=== PATIENT | male | born 1940 | race Caucasian/White ===

== ENCOUNTER 2018-10-27 13:32 | Inpatient (IN) | payer MEDICARE, OTHER ==
[~2018-10-27] VITALS: Ht 167.6 cm; Wt 64.2 kg
[~2018-10-27 13:32] MED LIST: APIX5TAB PO; ASPI-799 PO; ATEN-122 PO; ATOR20TA38 PO; ATOR40TA68 PO; B CM1TAB PO; CARV3.12 PO; DEXT15LI10 PO; DEXT50DI2 INJ; DONE10TA7 PO; FENO135C3 PO; FOLI-49 PO; GLIM4TAB55 PO; GLIP10TA14 PO; GLUC1VIA7 IM; GUAI120S25 PO; HYDR-3601 PO; INSU100I16 SQ; INSU100I33 SC; INSU100V23 SC; LEVE-5 PO; LEVO500P IVPB; LINA5TAB PO; LINA72CA PO; MEMA10TA PO; MEMA1CAP3 PO; MORP4CAR IV; MUPI22OI2 SUBDERMAL; NEED-135 MC; NEOM28OI2 TOP; NIT4 SL; NUT.237L52 PO; SITA100T11 PO; VALS320T2 PO; [UNRECOGNIZED DRUG - CODE] IV; [UNRECOGNIZED DRUG - CODE] MC; [UNRECOGNIZED DRUG - CODE] MC
[2018-10-27] MEDS ORDERED: SOD CHLORIDE 0.9% 1,000 ML IV STA (13:55)
[2018-10-27] MEDS ORDERED: ONDANSETRON 4 MG INJ IV ONE (14:00)
[2018-10-27] MEDS ORDERED: FENTAnyl 50 MCG/ML VIAL IV ONE (14:00)
[2018-10-27] MEDS ORDERED: SOD CHLORIDE 0.9% 500 ML IV STA (19:22)
[2018-10-27] MEDS ORDERED: ONDANSETRON 4 MG INJ IV STA (19:22)
[2018-10-27] MEDS ORDERED: morphine 2 MG INJ IV STA (19:22)
[2018-10-27] MEDS ORDERED: ONDANSETRON 4 MG INJ IV PRN (19:30)
[2018-10-27] MEDS ORDERED: ACETAMINOPHEN 325 MG TAB PO PRN (19:30)
[2018-10-27 22:00] VITALS: BP 131/63; PULSE 100; RESP 20; Ht 167.6 cm; Wt 64.2 kg
[2018-10-28] VITALS: BP 141/61; PULSE 74; RESP 19
[2018-10-28] MEDS: LEVETIRACETAM 500 MG TAB PO SCH ×3 (01:24→20:49)
[2018-10-28] MEDS ORDERED: ALBUTEROL/IPRATROPIUM (NEB) 3 ML AMP HHN PRN (01:30)
[2018-10-28] MEDS ORDERED: NACL 0.9% 3 ML SYG IV SCH (01:30)
[2018-10-28] MEDS ORDERED: ONDANSETRON 4 MG INJ IV PRN (01:30)
[2018-10-28] MEDS ORDERED: HYDROCODONE/APAP (5/325) TAB PO PRN (01:30)
[2018-10-28 04:00] VITALS: BP 140/65; PULSE 84; RESP 19
[2018-10-28 07:19] VITALS: BP 128/60; PULSE 91; RESP 18
[2018-10-28] MEDS: FOLIC ACID 1 MG TAB PO SCH (08:48)
[2018-10-28] MEDS: MUPIROCIN 2% 22 GM OINT TOP SCH ×2 (08:49→20:50)
[2018-10-28] MEDS ORDERED: HEPARIN 5,000 UNIT/1 ML VIAL SC SCH (09:00)
[2018-10-28 11:34] VITALS: BP 124/58; PULSE 93; RESP 18
[2018-10-28] MEDS: ACETAMINOPHEN 325 MG TAB PO PRN (12:23)
[2018-10-28] MEDS ORDERED: GLUCAGON 1 MG INJ IM PRN (12:30)
[2018-10-28] MEDS ORDERED: hydrALAzine 20 MG INJ IV PRN (12:30)
[2018-10-28] MEDS ORDERED: DEXTROSE 50% 50 ML SYRINGE IV PRN ×2 (12:30)
[2018-10-28] MEDS ORDERED: GLUCOSE GEL 15 GRAM TUBE PO PRN ×2 (12:30)
[2018-10-28] MEDS ORDERED: GLUCOSE GEL 15 GRAM TUBE BUCCAL PRN (12:30)
[2018-10-28] MEDS: CEPHALEXIN 500 MG CAP PO SCH ×2 (13:59→17:04)
[2018-10-28] MEDS: HYDROCODONE/APAP (5/325) TAB PO PRN (14:51)
[2018-10-28 15:23] VITALS: BP 123/60; PULSE 69; RESP 20
[2018-10-28] MEDS: DONEPEZIL 10 MG TAB PO SCH (16:58)
[2018-10-28] MEDS: INSULIN ASPART [NOVOLOG] 3 ML PEN SC SCH ×2 (17:24→21:09)
[2018-10-28 20:06] VITALS: BP 136/64; PULSE 78; RESP 18
[2018-10-28] MEDS: ATORVASTATIN 40 MG TAB PO SCH (20:49)
[2018-10-28] MEDS: MEMANTINE 10 MG TAB PO SCH (20:50)
[2018-10-29 00:17] VITALS: BP 133/69; PULSE 81; RESP 17
[2018-10-29] MEDS: CEPHALEXIN 500 MG CAP PO SCH ×2 (01:49→05:57)
[2018-10-29] MEDS: ACCU-CHEK XX SCH (01:59)
[2018-10-29 05:25] VITALS: BP 131/69; PULSE 92; RESP 18
[2018-10-29 07:39] VITALS: BP 135/70; PULSE 90; RESP 18
[2018-10-29] MEDS: INSULIN ASPART [NOVOLOG] 3 ML PEN SC SCH ×4 (07:59→21:43)
[2018-10-29] MEDS: MEMANTINE 10 MG TAB PO SCH ×2 (08:48→20:41)
[2018-10-29] MEDS: FOLIC ACID 1 MG TAB PO SCH (08:49)
[2018-10-29] MEDS: MUPIROCIN 2% 22 GM OINT TOP SCH ×2 (08:49→20:44)
[2018-10-29] MEDS: DONEPEZIL 10 MG TAB PO SCH (08:49)
[2018-10-29] MEDS: LEVETIRACETAM 500 MG TAB PO SCH ×2 (08:49→20:41)
[2018-10-29] MEDS: CEFEPIME 1GM/50 ML (PMX) 50 ML IVPB SCH ×2 (10:04→20:40)
[2018-10-29 11:41] VITALS: BP 139/78; PULSE 89; RESP 18
[2018-10-29 15:56] VITALS: BP 134/73; PULSE 89; RESP 18
[2018-10-29 20:34] VITALS: BP 129/62; PULSE 103; RESP 18
[2018-10-29] MEDS: ATORVASTATIN 40 MG TAB PO SCH (20:41)
[2018-10-29] MEDS: ASCORBIC ACID 500 MG TAB PO SCH (20:43)
[2018-10-30 00:13] VITALS: BP 126/70; PULSE 93; RESP 18
[2018-10-30] MEDS: ACCU-CHEK XX SCH (02:14)
[2018-10-30 04:34] VITALS: BP 122/69; PULSE 90; RESP 18
[2018-10-30] MEDS: MULTIVITAMINS THERAPEUTIC TAB PO SCH (08:11)
[2018-10-30] MEDS: LEVETIRACETAM 500 MG TAB PO SCH ×2 (08:11→20:17)
[2018-10-30] MEDS: FOLIC ACID 1 MG TAB PO SCH (08:11)
[2018-10-30] MEDS: ZINC SULFATE 220 MG CAP PO SCH (08:11)
[2018-10-30] MEDS: MEMANTINE 10 MG TAB PO SCH ×2 (08:11→20:17)
[2018-10-30] MEDS: BALSAM PERU/CASTOR OIL 60 GM TUBE TOP SCH (08:11)
[2018-10-30] MEDS: ASCORBIC ACID 500 MG TAB PO SCH ×2 (08:12→20:17)
[2018-10-30] MEDS: CEFEPIME 1GM/50 ML (PMX) 50 ML IVPB SCH ×2 (08:12→20:17)
[2018-10-30] MEDS: DONEPEZIL 10 MG TAB PO SCH (08:13)
[2018-10-30 08:15] VITALS: BP 152/68; PULSE 101
[2018-10-30] MEDS: INSULIN ASPART [NOVOLOG] 3 ML PEN SC SCH ×4 (08:24→20:31)
[2018-10-30] MEDS ORDERED: POTASSIUM CHLORIDE 100 ML IVPB ONE (11:30)
[2018-10-30] MEDS ORDERED: MAGNESIUM SULFATE 2 GM/50 ML 50 ML IVPB ONE (11:30)
[2018-10-30 11:35] VITALS: BP 135/62; PULSE 104; RESP 20
[2018-10-30] MEDS: MUPIROCIN 2% 22 GM OINT TOP SCH ×2 (12:02→20:18)
[2018-10-30 15:29] VITALS: BP 122/58; PULSE 111; RESP 20
[2018-10-30 20:00] VITALS: BP 134/63; PULSE 114; RESP 18
[2018-10-30] MEDS: COLLAGENASE 5 GM (UD JAR) TOP SCH (20:17)
[2018-10-30] MEDS: ATORVASTATIN 40 MG TAB PO SCH (20:18)
[2018-10-30] MEDS ORDERED: INSULIN ASPART [NOVOLOG] 3 ML PEN SC ONE (21:30)
[2018-10-30] MEDS ORDERED: ACCU-CHEK XX ONE (21:30)
[2018-10-30] MEDS: ACETAMINOPHEN 325 MG TAB PO PRN (23:21)
[2018-10-31] VITALS (24 sets, daily range): BP systolic 90–147; BP diastolic 43–76; PULSE 76–103; RESP 14–31
[2018-10-31] MEDS: ACCU-CHEK XX SCH (03:37)
[2018-10-31] MEDS: DONEPEZIL 10 MG TAB PO SCH (08:47)
[2018-10-31] MEDS: ASCORBIC ACID 500 MG TAB PO SCH ×2 (08:48→21:50)
[2018-10-31] MEDS: MULTIVITAMINS THERAPEUTIC TAB PO SCH (08:48)
[2018-10-31] MEDS: FOLIC ACID 1 MG TAB PO SCH (08:48)
[2018-10-31] MEDS: ZINC SULFATE 220 MG CAP PO SCH (08:48)
[2018-10-31] MEDS: MEMANTINE 10 MG TAB PO SCH ×2 (08:48→21:57)
[2018-10-31] MEDS: LEVETIRACETAM 500 MG TAB PO SCH ×2 (08:48→21:48)
[2018-10-31] MEDS: CEFEPIME 1GM/50 ML (PMX) 50 ML IVPB SCH ×2 (08:49→21:50)
[2018-10-31] MEDS: MUPIROCIN 2% 22 GM OINT TOP SCH ×2 (08:50→21:00)
[2018-10-31] MEDS: BALSAM PERU/CASTOR OIL 60 GM TUBE TOP SCH (08:50)
[2018-10-31] MEDS: COLLAGENASE 5 GM (UD JAR) TOP SCH ×2 (08:51→21:48)
[2018-10-31] MEDS: INSULIN ASPART [NOVOLOG] 3 ML PEN SC SCH ×3 (11:43→21:39)
[2018-10-31] MEDS ORDERED: PROPOFOL 20 ML ONE (16:21)
[2018-10-31] MEDS ORDERED: CEFAZOLIN 1 GM INJ ONE (16:21)
[2018-10-31] MEDS ORDERED: FENTAnyl 50 MCG/ML VIAL ONE (16:23)
[2018-10-31] MEDS ORDERED: MIDAZOLAM 1 MG/ML 2 ML INJ ONE (16:23)
[2018-10-31] MEDS ORDERED: ROPIVACAINE 0.2% 20 ML VIAL ONE (16:23)
[2018-10-31] MEDS ORDERED: PHENYLephrine (100 MCG/ML) 10ML SYG ONE (17:12)
[2018-10-31] MEDS ORDERED: HETASTARCH 6% NACL 500 ML ONE (17:12)
[2018-10-31] MEDS ORDERED: VANCOMYCIN IV PER PHARMACY XX SCH (17:30)
[2018-10-31] MEDS ORDERED: PHENYLephrine 10 MG INJ ONE (17:35)
[2018-10-31] MEDS ORDERED: DEXAMETHASONE 4 MG/ML 5 ML INJ ONE (17:40)
[2018-10-31] MEDS ORDERED: ONDANSETRON 4 MG INJ ONE (17:40)
[2018-10-31] MEDS ORDERED: NACL 0.9% 3 ML SYG IV SCH (18:00)
[2018-10-31] MEDS ORDERED: HYDROCODONE/APAP (5/325) TAB PO PRN (18:00)
[2018-10-31] MEDS ORDERED: VANCOMYCIN 1.25 GM/NS 250 ML 250 ML IVPB SCH (18:30)
[2018-10-31] MEDS: SOD CHLORIDE 0.9% 1,000 ML IV SCH (18:48)
[2018-10-31] MEDS ORDERED: NALOXONE (0.4 MG/ML) INJ ONE (19:05)
[2018-10-31] MEDS ORDERED: DIPHENHYDRAMINE 50 MG INJ IV PRN (19:30)
[2018-10-31] MEDS ORDERED: HYDROmorphONE 0.5 MG/0.5 ML SYG IV PRN (19:30)
[2018-10-31] MEDS ORDERED: ONDANSETRON 4 MG INJ IV PRN (19:30)
[2018-10-31] MEDS ORDERED: NALOXONE (0.4 MG/ML) INJ IV PRN (19:30)
[2018-10-31] MEDS ORDERED: morphine 2 MG INJ IV PRN (19:30)
[2018-10-31] MEDS ORDERED: NALBUPHINE HCL (10 MG/1 ML) INJ IV PRN (19:30)
[2018-10-31] MEDS: ATORVASTATIN 40 MG TAB PO SCH (21:49)
[2018-11-01 00:17] VITALS: BP 118/60; PULSE 64; RESP 20
[2018-11-01] MEDS: ACCU-CHEK XX SCH (02:00)
[2018-11-01 04:26] VITALS: BP 115/59; PULSE 64; RESP 20
[2018-11-01] MEDS: SOD CHLORIDE 0.9% 1,000 ML IV SCH ×2 (06:48→19:45)
[2018-11-01 07:29] VITALS: BP 109/56; PULSE 100; RESP 19
[2018-11-01] MEDS: INSULIN ASPART [NOVOLOG] 3 ML PEN SC SCH ×4 (07:48→21:41)
[2018-11-01] MEDS: CEFEPIME 1GM/50 ML (PMX) 50 ML IVPB SCH ×2 (08:38→21:13)
[2018-11-01] MEDS: ASCORBIC ACID 500 MG TAB PO SCH ×2 (08:39→21:01)
[2018-11-01] MEDS: ZINC SULFATE 220 MG CAP PO SCH (08:39)
[2018-11-01] MEDS: MULTIVITAMINS THERAPEUTIC TAB PO SCH (08:39)
[2018-11-01] MEDS: DONEPEZIL 10 MG TAB PO SCH (08:39)
[2018-11-01] MEDS: MEMANTINE 10 MG TAB PO SCH ×2 (08:39→21:00)
[2018-11-01] MEDS: FOLIC ACID 1 MG TAB PO SCH (08:39)
[2018-11-01] MEDS: LEVETIRACETAM 500 MG TAB PO SCH ×2 (08:39→21:00)
[2018-11-01] MEDS: ENOXAPARIN 40 MG/0.4 ML SYG SC SCH (09:02)
[2018-11-01 11:12] VITALS: BP 120/66; PULSE 92; RESP 19
[2018-11-01] MEDS: MUPIROCIN 2% 22 GM OINT TOP SCH ×2 (11:39→21:00)
[2018-11-01] MEDS: BALSAM PERU/CASTOR OIL 60 GM TUBE TOP SCH ×2 (11:39→21:18)
[2018-11-01] MEDS: COLLAGENASE 5 GM (UD JAR) TOP SCH ×2 (11:39→21:18)
[2018-11-01] MEDS ORDERED: INSULIN GLARGINE [LANTus] (100 UNITS/ML) SYG SC ONE (13:30)
[2018-11-01] MEDS: glipiZIDE 10 MG TAB PO SCH (15:20)
[2018-11-01 15:43] VITALS: BP 115/56; PULSE 85; RESP 18
[2018-11-01] MEDS: FLUCONAZOLE 100 MG/50 ML (PMX) 50 ML IVPB SCH (18:44)
[2018-11-01 20:00] VITALS: BP 117/59; PULSE 74; RESP 19
[2018-11-01] MEDS: ATORVASTATIN 40 MG TAB PO SCH (21:00)
[2018-11-01] MEDS: VANCOMYCIN 1 GM 250 ML IVPB SCH (21:13)
[2018-11-01] MEDS ORDERED: INSULIN ASPART [NOVOLOG] 3 ML PEN SC ONE (22:00)
[2018-11-02] VITALS: BP 119/57; PULSE 81; RESP 18
[2018-11-02] MEDS ORDERED: ACCU-CHEK XX ONE
[2018-11-02] MEDS: ACETAMINOPHEN 325 MG TAB PO PRN ×2 (01:00→20:46)
[2018-11-02] MEDS: ACCU-CHEK XX SCH (02:00)
[2018-11-02 04:00] VITALS: BP 102/53; PULSE 80; RESP 18
[2018-11-02] MEDS: PANTOPRAZOLE (EC) 40 MG TAB PO SCH (06:01)
[2018-11-02] MEDS: SOD CHLORIDE 0.9% 1,000 ML IV SCH (07:31)
[2018-11-02] MEDS: glipiZIDE 10 MG TAB PO SCH (07:52)
[2018-11-02] MEDS: INSULIN GLARGINE [LANTus] (100 UNITS/ML) SYG SC SCH (07:53)
[2018-11-02] MEDS: INSULIN ASPART [NOVOLOG] 3 ML PEN SC SCH ×4 (07:54→20:53)
[2018-11-02 08:32] VITALS: BP 123/60; RESP 18
[2018-11-02] MEDS ORDERED: POTASSIUM CHLORIDE 20 MEQ POWDER FOR ORAL SOLN PO ONE (09:00)
[2018-11-02] MEDS: COLLAGENASE 5 GM (UD JAR) TOP SCH ×2 (09:46→20:54)
[2018-11-02] MEDS: CEFEPIME 1GM/50 ML (PMX) 50 ML IVPB SCH ×2 (09:46→20:45)
[2018-11-02] MEDS: DONEPEZIL 10 MG TAB PO SCH (09:47)
[2018-11-02] MEDS: MULTIVITAMINS THERAPEUTIC TAB PO SCH (09:47)
[2018-11-02] MEDS: LEVETIRACETAM 500 MG TAB PO SCH ×2 (09:47→20:46)
[2018-11-02] MEDS: FOLIC ACID 1 MG TAB PO SCH (09:47)
[2018-11-02] MEDS: MEMANTINE 10 MG TAB PO SCH ×2 (09:47→20:46)
[2018-11-02] MEDS: ZINC SULFATE 220 MG CAP PO SCH (09:47)
[2018-11-02] MEDS: ASCORBIC ACID 500 MG TAB PO SCH ×2 (09:48→20:46)
[2018-11-02] MEDS: ENOXAPARIN 40 MG/0.4 ML SYG SC SCH (09:53)
[2018-11-02] MEDS: MUPIROCIN 2% 22 GM OINT TOP SCH ×2 (11:52→20:47)
[2018-11-02 12:36] VITALS: BP 149/64; PULSE 81; RESP 18
[2018-11-02] MEDS: SOD FERRIC GLUC COMPLX 125 MG in SOD CHLORIDE 0.9% 100 ML IVPB SCH (14:53)
[2018-11-02 16:28] VITALS: BP 135/79; PULSE 95; RESP 18
[2018-11-02] MEDS: FLUCONAZOLE 100 MG/50 ML (PMX) 50 ML IVPB SCH (18:03)
[2018-11-02] MEDS: HYDROCODONE/APAP (5/325) TAB PO PRN (18:38)
[2018-11-02 20:00] VITALS: BP 140/63; PULSE 101; RESP 19
[2018-11-02] MEDS: ATORVASTATIN 40 MG TAB PO SCH (20:46)
[2018-11-02] MEDS: VANCOMYCIN 1 GM 250 ML IVPB SCH (21:57)
[2018-11-03] VITALS: BP 130/60; PULSE 108; RESP 19
[2018-11-03] MEDS: ACCU-CHEK XX SCH (02:00)
[2018-11-03] MEDS: HYDROCODONE/APAP (5/325) TAB PO PRN ×3 (02:28→21:25)
[2018-11-03 04:00] VITALS: BP 105/53; PULSE 91; RESP 18
[2018-11-03] MEDS: PANTOPRAZOLE (EC) 40 MG TAB PO SCH (06:46)
[2018-11-03] MEDS: glipiZIDE 10 MG TAB PO SCH (06:46)
[2018-11-03 07:49] VITALS: BP 106/53; PULSE 97; RESP 18
[2018-11-03] MEDS: INSULIN ASPART [NOVOLOG] 3 ML PEN SC SCH ×4 (07:55→21:00)
[2018-11-03] MEDS: INSULIN GLARGINE [LANTus] (100 UNITS/ML) SYG SC SCH (07:55)
[2018-11-03] MEDS: MEMANTINE 10 MG TAB PO SCH ×2 (09:34→20:29)
[2018-11-03] MEDS: ZINC SULFATE 220 MG CAP PO SCH (09:34)
[2018-11-03] MEDS: CEFEPIME 1GM/50 ML (PMX) 50 ML IVPB SCH ×2 (09:34→20:28)
[2018-11-03] MEDS: DONEPEZIL 10 MG TAB PO SCH (09:34)
[2018-11-03] MEDS: LEVETIRACETAM 500 MG TAB PO SCH ×2 (09:34→20:29)
[2018-11-03] MEDS: ASCORBIC ACID 500 MG TAB PO SCH ×2 (09:34→20:29)
[2018-11-03] MEDS: COLLAGENASE 5 GM (UD JAR) TOP SCH ×2 (09:34→20:29)
[2018-11-03] MEDS: FOLIC ACID 1 MG TAB PO SCH (09:34)
[2018-11-03] MEDS: MULTIVITAMINS THERAPEUTIC TAB PO SCH (09:34)
[2018-11-03] MEDS: MUPIROCIN 2% 22 GM OINT TOP SCH ×2 (09:35→20:30)
[2018-11-03] MEDS: BALSAM PERU/CASTOR OIL 60 GM TUBE TOP SCH (09:35)
[2018-11-03] MEDS: ENOXAPARIN 40 MG/0.4 ML SYG SC SCH (09:53)
[2018-11-03] MEDS: NEOMYC/POLYMYX/BACIT 30 GM OINT TOP SCH ×2 (11:15→20:30)
[2018-11-03] MEDS: SOD FERRIC GLUC COMPLX 125 MG in SOD CHLORIDE 0.9% 100 ML IVPB SCH (13:40)
[2018-11-03 15:31] VITALS: BP 135/62; PULSE 99; RESP 18
[2018-11-03] MEDS: FLUCONAZOLE 100 MG/50 ML (PMX) 50 ML IVPB SCH (17:22)
[2018-11-03 20:00] VITALS: BP 139/63; PULSE 94; RESP 19
[2018-11-03] MEDS: ATORVASTATIN 40 MG TAB PO SCH (20:29)
[2018-11-03] MEDS: ACETAMINOPHEN 325 MG TAB PO PRN (20:38)
[2018-11-03] MEDS: VANCOMYCIN 1 GM 250 ML IVPB SCH (21:25)
[2018-11-04] VITALS (7 sets, daily range): BP systolic 106–169; BP diastolic 53–73; PULSE 79–125; RESP 18–20
[2018-11-04] MEDS: ACCU-CHEK XX SCH (02:54)
[2018-11-04] MEDS: glipiZIDE 10 MG TAB PO SCH (06:33)
[2018-11-04] MEDS: PANTOPRAZOLE (EC) 40 MG TAB PO SCH (06:33)
[2018-11-04] MEDS: INSULIN ASPART [NOVOLOG] 3 ML PEN SC SCH ×4 (07:25→20:56)
[2018-11-04] MEDS: INSULIN GLARGINE [LANTus] (100 UNITS/ML) SYG SC SCH (07:29)
[2018-11-04] MEDS: ASCORBIC ACID 500 MG TAB PO SCH ×2 (08:38→20:37)
[2018-11-04] MEDS: CEFEPIME 1GM/50 ML (PMX) 50 ML IVPB SCH ×2 (08:38→20:38)
[2018-11-04] MEDS: MULTIVITAMINS THERAPEUTIC TAB PO SCH (08:38)
[2018-11-04] MEDS: ZINC SULFATE 220 MG CAP PO SCH (08:39)
[2018-11-04] MEDS: DONEPEZIL 10 MG TAB PO SCH (08:39)
[2018-11-04] MEDS: LEVETIRACETAM 500 MG TAB PO SCH ×2 (08:39→20:37)
[2018-11-04] MEDS: MEMANTINE 10 MG TAB PO SCH ×2 (08:39→20:37)
[2018-11-04] MEDS: ENOXAPARIN 40 MG/0.4 ML SYG SC SCH (08:51)
[2018-11-04] MEDS: MUPIROCIN 2% 22 GM OINT TOP SCH ×2 (08:54→21:41)
[2018-11-04] MEDS: BALSAM PERU/CASTOR OIL 60 GM TUBE TOP SCH (08:54)
[2018-11-04] MEDS: NEOMYC/POLYMYX/BACIT 30 GM OINT TOP SCH ×2 (08:54→21:41)
[2018-11-04] MEDS: COLLAGENASE 5 GM (UD JAR) TOP SCH ×2 (08:54→20:40)
[2018-11-04] MEDS: HYDROCODONE/APAP (5/325) TAB PO PRN ×2 (08:55→17:22)
[2018-11-04] MEDS: FOLIC ACID 1 MG TAB PO SCH (09:37)
[2018-11-04] MEDS: SOD FERRIC GLUC COMPLX 125 MG in SOD CHLORIDE 0.9% 100 ML IVPB SCH (13:28)
[2018-11-04] MEDS: FLUCONAZOLE 100 MG/50 ML (PMX) 50 ML IVPB SCH (17:22)
[2018-11-04] MEDS: ACETAMINOPHEN 325 MG TAB PO PRN (18:34)
[2018-11-04] MEDS: morphine 2 MG INJ IV PRN (18:48)
[2018-11-04] MEDS ORDERED: LABETALOL HCL 20MG INJ IV ONE (20:30)
[2018-11-04] MEDS: ATORVASTATIN 40 MG TAB PO SCH (20:37)
[2018-11-04] MEDS: VANCOMYCIN 1 GM 250 ML IVPB SCH (20:39)
[2018-11-05] MEDS: ACCU-CHEK XX SCH (02:00)
[2018-11-05] MEDS: HYDROCODONE/APAP (5/325) TAB PO PRN (03:09)
[2018-11-05 04:00] VITALS: BP 97/51; PULSE 101; RESP 19
[2018-11-05] MEDS: PANTOPRAZOLE (EC) 40 MG TAB PO SCH (06:30)
[2018-11-05 07:31] VITALS: BP 94/46; PULSE 91; RESP 18
[2018-11-05] MEDS: glipiZIDE 10 MG TAB PO SCH (08:00)
[2018-11-05] MEDS: CEFEPIME 1GM/50 ML (PMX) 50 ML IVPB SCH ×2 (08:02→20:30)
[2018-11-05] MEDS: INSULIN ASPART [NOVOLOG] 3 ML PEN SC SCH ×4 (08:14→20:56)
[2018-11-05] MEDS: INSULIN GLARGINE [LANTus] (100 UNITS/ML) SYG SC SCH (08:14)
[2018-11-05] MEDS: DONEPEZIL 10 MG TAB PO SCH (09:21)
[2018-11-05] MEDS: MULTIVITAMINS THERAPEUTIC TAB PO SCH (09:22)
[2018-11-05] MEDS: MEMANTINE 10 MG TAB PO SCH ×2 (09:22→20:31)
[2018-11-05] MEDS: LEVETIRACETAM 500 MG TAB PO SCH ×2 (09:23→20:31)
[2018-11-05] MEDS: FOLIC ACID 1 MG TAB PO SCH (09:23)
[2018-11-05] MEDS: ASCORBIC ACID 500 MG TAB PO SCH ×2 (09:23→20:31)
[2018-11-05] MEDS: ZINC SULFATE 220 MG CAP PO SCH (09:23)
[2018-11-05] MEDS: NEOMYC/POLYMYX/BACIT 30 GM OINT TOP SCH ×2 (09:27→21:25)
[2018-11-05] MEDS: BALSAM PERU/CASTOR OIL 60 GM TUBE TOP SCH (09:27)
[2018-11-05] MEDS: MUPIROCIN 2% 22 GM OINT TOP SCH ×2 (09:28→21:25)
[2018-11-05] MEDS: COLLAGENASE 5 GM (UD JAR) TOP SCH ×2 (09:28→20:31)
[2018-11-05] MEDS: ENOXAPARIN 40 MG/0.4 ML SYG SC SCH (10:09)
[2018-11-05 11:46] VITALS: BP 129/59; PULSE 126; RESP 18
[2018-11-05] MEDS: morphine 2 MG INJ IV PRN (14:33)
[2018-11-05 16:03] VITALS: BP 129/60; PULSE 114; RESP 18
[2018-11-05] MEDS: FLUCONAZOLE 100 MG/50 ML (PMX) 50 ML IVPB SCH (17:10)
[2018-11-05 19:57] VITALS: BP 141/62; PULSE 112; RESP 19
[2018-11-05] MEDS: VANCOMYCIN 1 GM 250 ML IVPB SCH (20:31)
[2018-11-05] MEDS: ATORVASTATIN 40 MG TAB PO SCH (20:31)
[2018-11-05] MEDS: ACETAMINOPHEN 325 MG TAB PO PRN (20:31)
[2018-11-05 23:52] VITALS: BP 104/59; PULSE 104; RESP 20
[2018-11-06] MEDS: ACCU-CHEK XX SCH (02:19)
[2018-11-06 03:53] VITALS: BP 117/54; PULSE 119; RESP 18
[2018-11-06] MEDS: ACETAMINOPHEN 325 MG TAB PO PRN (05:16)
[2018-11-06] MEDS: PANTOPRAZOLE (EC) 40 MG TAB PO SCH (05:16)
[2018-11-06 07:32] VITALS: BP 90/47; PULSE 113; RESP 20
[2018-11-06] MEDS: glipiZIDE 10 MG TAB PO SCH (07:46)
[2018-11-06] MEDS: INSULIN GLARGINE [LANTus] (100 UNITS/ML) SYG SC SCH (08:02)
[2018-11-06] MEDS: INSULIN ASPART [NOVOLOG] 3 ML PEN SC SCH ×4 (08:57→20:54)
[2018-11-06] MEDS: COLLAGENASE 5 GM (UD JAR) TOP SCH ×2 (09:49→20:47)
[2018-11-06] MEDS: CEFEPIME 1GM/50 ML (PMX) 50 ML IVPB SCH (09:49)
[2018-11-06] MEDS: LEVETIRACETAM 500 MG TAB PO SCH ×2 (09:50→20:46)
[2018-11-06] MEDS: MULTIVITAMINS THERAPEUTIC TAB PO SCH (09:50)
[2018-11-06] MEDS: FOLIC ACID 1 MG TAB PO SCH (09:50)
[2018-11-06] MEDS: ASCORBIC ACID 500 MG TAB PO SCH ×2 (09:50→20:46)
[2018-11-06] MEDS: DONEPEZIL 10 MG TAB PO SCH (09:50)
[2018-11-06] MEDS: ENOXAPARIN 40 MG/0.4 ML SYG SC SCH (09:50)
[2018-11-06] MEDS: MEMANTINE 10 MG TAB PO SCH ×2 (09:50→20:46)
[2018-11-06] MEDS: ZINC SULFATE 220 MG CAP PO SCH (09:50)
[2018-11-06] MEDS: NEOMYC/POLYMYX/BACIT 30 GM OINT TOP SCH ×2 (09:51→20:47)
[2018-11-06] MEDS: MUPIROCIN 2% 22 GM OINT TOP SCH ×2 (09:51→20:47)
[2018-11-06] MEDS: BALSAM PERU/CASTOR OIL 60 GM TUBE TOP SCH (09:51)
[2018-11-06 11:28] VITALS: BP 130/66; PULSE 144; RESP 20
[2018-11-06 15:22] VITALS: BP 129/60; PULSE 132; RESP 20
[2018-11-06] MEDS: PIPER-TAZO 2.25 GM (PMX) 50 ML IVPB SCH (18:58)
[2018-11-06] MEDS: FLUCONAZOLE 100 MG/50 ML (PMX) 50 ML IVPB SCH (19:34)
[2018-11-06 20:00] VITALS: BP 145/62; PULSE 127; RESP 19
[2018-11-06] MEDS: ATORVASTATIN 40 MG TAB PO SCH (20:46)
[2018-11-06] MEDS: VANCOMYCIN 1 GM 250 ML IVPB SCH (21:09)
[2018-11-06] MEDS: HYDROCODONE/APAP (5/325) TAB PO PRN (21:09)
[2018-11-07] VITALS: BP 104/51; PULSE 111; RESP 18
[2018-11-07] MEDS: PIPER-TAZO 2.25 GM (PMX) 50 ML IVPB SCH ×5 (00:16→23:35)
[2018-11-07] MEDS: ACCU-CHEK XX SCH (01:45)
[2018-11-07] MEDS: ACETAMINOPHEN 325 MG TAB PO PRN (01:58)
[2018-11-07 04:00] VITALS: BP 95/64; PULSE 94; RESP 20
[2018-11-07] MEDS: PANTOPRAZOLE (EC) 40 MG TAB PO SCH (05:33)
[2018-11-07 07:48] VITALS: BP 93/52; PULSE 107; RESP 20
[2018-11-07] MEDS: glipiZIDE 10 MG TAB PO SCH (08:07)
[2018-11-07] MEDS: INSULIN ASPART [NOVOLOG] 3 ML PEN SC SCH ×4 (08:09→21:13)
[2018-11-07] MEDS: LEVETIRACETAM 500 MG TAB PO SCH ×2 (09:03→20:49)
[2018-11-07] MEDS: DONEPEZIL 10 MG TAB PO SCH (09:03)
[2018-11-07] MEDS: COLLAGENASE 5 GM (UD JAR) TOP SCH ×2 (09:03→20:50)
[2018-11-07] MEDS: MULTIVITAMINS THERAPEUTIC TAB PO SCH (09:04)
[2018-11-07] MEDS: FOLIC ACID 1 MG TAB PO SCH (09:04)
[2018-11-07] MEDS: ASCORBIC ACID 500 MG TAB PO SCH ×2 (09:04→20:49)
[2018-11-07] MEDS: ZINC SULFATE 220 MG CAP PO SCH (09:04)
[2018-11-07] MEDS: NEOMYC/POLYMYX/BACIT 30 GM OINT TOP SCH ×2 (09:05→20:50)
[2018-11-07] MEDS: MUPIROCIN 2% 22 GM OINT TOP SCH ×2 (09:05→20:51)
[2018-11-07] MEDS: BALSAM PERU/CASTOR OIL 60 GM TUBE TOP SCH (09:06)
[2018-11-07] MEDS: ENOXAPARIN 40 MG/0.4 ML SYG SC SCH (09:08)
[2018-11-07] MEDS: MEMANTINE 10 MG TAB PO SCH ×2 (10:40→20:49)
[2018-11-07] MEDS: INSULIN GLARGINE [LANTus] (100 UNITS/ML) SYG SC SCH (11:03)
[2018-11-07 11:31] VITALS: BP 118/53; PULSE 98; RESP 20
[2018-11-07] MEDS: ASPIRIN (EC) 81 MG TAB PO SCH (14:54)
[2018-11-07 15:28] VITALS: BP 108/53; PULSE 110; RESP 20
[2018-11-07] MEDS: FLUCONAZOLE 100 MG/50 ML (PMX) 50 ML IVPB SCH (17:31)
[2018-11-07 19:26] VITALS: BP 112/55; PULSE 107; RESP 19
[2018-11-07] MEDS: ATORVASTATIN 40 MG TAB PO SCH (20:49)
[2018-11-07] MEDS: HYDROCODONE/APAP (5/325) TAB PO PRN (20:50)
[2018-11-07] MEDS ORDERED: VANCOMYCIN 1.25 GM/NS 250 ML 250 ML IVPB SCH (21:00)
[2018-11-08] VITALS (8 sets, daily range): BP systolic 90–116; BP diastolic 46–54; PULSE 87–104; RESP 18–20
[2018-11-08] MEDS: ACCU-CHEK XX SCH (02:35)
[2018-11-08] MEDS: PANTOPRAZOLE (EC) 40 MG TAB PO SCH (05:01)
[2018-11-08] MEDS: PIPER-TAZO 2.25 GM (PMX) 50 ML IVPB SCH ×2 (05:01→12:26)
[2018-11-08] MEDS: glipiZIDE 10 MG TAB PO SCH (08:10)
[2018-11-08] MEDS: INSULIN GLARGINE [LANTus] (100 UNITS/ML) SYG SC SCH (08:15)
[2018-11-08] MEDS: INSULIN ASPART [NOVOLOG] 3 ML PEN SC SCH ×4 (08:19→20:57)
[2018-11-08] MEDS: MULTIVITAMINS THERAPEUTIC TAB PO SCH (09:52)
[2018-11-08] MEDS: DONEPEZIL 10 MG TAB PO SCH (09:52)
[2018-11-08] MEDS: LEVETIRACETAM 500 MG TAB PO SCH ×2 (09:52→20:42)
[2018-11-08] MEDS: MEMANTINE 10 MG TAB PO SCH ×2 (09:52→20:42)
[2018-11-08] MEDS: ASPIRIN (EC) 81 MG TAB PO SCH (09:52)
[2018-11-08] MEDS: ASCORBIC ACID 500 MG TAB PO SCH ×2 (09:53→20:42)
[2018-11-08] MEDS: COLLAGENASE 5 GM (UD JAR) TOP SCH ×2 (09:53→20:43)
[2018-11-08] MEDS: FOLIC ACID 1 MG TAB PO SCH (09:53)
[2018-11-08] MEDS: BALSAM PERU/CASTOR OIL 60 GM TUBE TOP SCH (09:53)
[2018-11-08] MEDS: NEOMYC/POLYMYX/BACIT 30 GM OINT TOP SCH ×2 (09:53→20:43)
[2018-11-08] MEDS: MUPIROCIN 2% 22 GM OINT TOP SCH ×2 (09:54→20:43)
[2018-11-08] MEDS: ZINC SULFATE 220 MG CAP PO SCH (10:04)
[2018-11-08] MEDS: ENOXAPARIN 40 MG/0.4 ML SYG SC SCH (10:13)
[2018-11-08] MEDS ORDERED: SOD CHLORIDE 0.9% 1,000 ML IV SCH (13:00)
[2018-11-08] MEDS: metroNIDAZOLE 500 MG TAB PO SCH ×2 (15:22→21:33)
[2018-11-08] MEDS: HYDROCODONE/APAP (5/325) TAB PO PRN ×3 (15:49→21:34)
[2018-11-08] MEDS: FLUCONAZOLE 200 MG TAB PO SCH (17:26)
[2018-11-08] MEDS: ATORVASTATIN 40 MG TAB PO SCH (20:42)
[2018-11-09] MEDS: ACCU-CHEK XX SCH (02:49)
[2018-11-09 04:00] VITALS: BP 102/51; PULSE 94; RESP 20
[2018-11-09] MEDS: metroNIDAZOLE 500 MG TAB PO SCH ×3 (06:20→22:17)
[2018-11-09] MEDS: PANTOPRAZOLE (EC) 40 MG TAB PO SCH (06:20)
[2018-11-09 07:54] VITALS: BP 96/54; PULSE 93; RESP 18
[2018-11-09] MEDS: INSULIN ASPART [NOVOLOG] 3 ML PEN SC SCH ×4 (08:14→21:41)
[2018-11-09] MEDS: glipiZIDE 10 MG TAB PO SCH (08:30)
[2018-11-09] MEDS: INSULIN GLARGINE [LANTus] (100 UNITS/ML) SYG SC SCH (08:32)
[2018-11-09] MEDS: MEMANTINE 10 MG TAB PO SCH ×2 (08:34→21:00)
[2018-11-09] MEDS: ASPIRIN (EC) 81 MG TAB PO SCH (08:34)
[2018-11-09] MEDS: LEVETIRACETAM 500 MG TAB PO SCH ×2 (08:34→21:01)
[2018-11-09] MEDS: MULTIVITAMINS THERAPEUTIC TAB PO SCH (08:34)
[2018-11-09] MEDS: ZINC SULFATE 220 MG CAP PO SCH (08:34)
[2018-11-09] MEDS: ASCORBIC ACID 500 MG TAB PO SCH ×2 (08:35→21:01)
[2018-11-09] MEDS: DONEPEZIL 10 MG TAB PO SCH (08:35)
[2018-11-09] MEDS: FOLIC ACID 1 MG TAB PO SCH (08:35)
[2018-11-09] MEDS: BALSAM PERU/CASTOR OIL 60 GM TUBE TOP SCH (08:41)
[2018-11-09] MEDS: NEOMYC/POLYMYX/BACIT 30 GM OINT TOP SCH ×2 (08:41→21:36)
[2018-11-09] MEDS: COLLAGENASE 5 GM (UD JAR) TOP SCH ×2 (08:41→21:35)
[2018-11-09] MEDS: MUPIROCIN 2% 22 GM OINT TOP SCH ×2 (08:41→21:36)
[2018-11-09] MEDS: ENOXAPARIN 30 MG/0.3 ML SYG SC SCH (08:52)
[2018-11-09 12:29] VITALS: BP 91/55; PULSE 85; RESP 18
[2018-11-09] MEDS: HYDROCODONE/APAP (5/325) TAB PO PRN (14:05)
[2018-11-09 15:14] VITALS: BP 95/50; PULSE 85; RESP 20
[2018-11-09] MEDS: FLUCONAZOLE 200 MG TAB PO SCH (17:23)
[2018-11-09 20:00] VITALS: BP 112/56; PULSE 92; RESP 18
[2018-11-09] MEDS ORDERED: VANCOMYCIN 1 GM 250 ML IVPB SCH (20:00)
[2018-11-09] MEDS: ATORVASTATIN 40 MG TAB PO SCH (21:01)
[2018-11-10] VITALS (7 sets, daily range): BP systolic 93–123; BP diastolic 51–63; PULSE 83–100; RESP 17–19
[2018-11-10] MEDS: ACCU-CHEK XX SCH (02:00)
[2018-11-10] MEDS: metroNIDAZOLE 500 MG TAB PO SCH ×3 (06:32→21:09)
[2018-11-10] MEDS: PANTOPRAZOLE (EC) 40 MG TAB PO SCH (06:33)
[2018-11-10] MEDS: ZINC SULFATE 220 MG CAP PO SCH (08:21)
[2018-11-10] MEDS: FOLIC ACID 1 MG TAB PO SCH (08:21)
[2018-11-10] MEDS: LEVETIRACETAM 500 MG TAB PO SCH ×2 (08:22→21:02)
[2018-11-10] MEDS: MULTIVITAMINS THERAPEUTIC TAB PO SCH (08:22)
[2018-11-10] MEDS: DONEPEZIL 10 MG TAB PO SCH (08:23)
[2018-11-10] MEDS: MEMANTINE 10 MG TAB PO SCH ×2 (08:23→21:02)
[2018-11-10] MEDS: ASCORBIC ACID 500 MG TAB PO SCH ×2 (08:23→21:01)
[2018-11-10] MEDS: ASPIRIN (EC) 81 MG TAB PO SCH (08:24)
[2018-11-10] MEDS: COLLAGENASE 5 GM (UD JAR) TOP SCH ×2 (08:24→21:09)
[2018-11-10] MEDS: glipiZIDE 10 MG TAB PO SCH (08:24)
[2018-11-10] MEDS: NEOMYC/POLYMYX/BACIT 30 GM OINT TOP SCH ×2 (08:26→21:05)
[2018-11-10] MEDS: BALSAM PERU/CASTOR OIL 60 GM TUBE TOP SCH (08:26)
[2018-11-10] MEDS: INSULIN GLARGINE [LANTus] (100 UNITS/ML) SYG SC SCH (08:44)
[2018-11-10] MEDS: INSULIN ASPART [NOVOLOG] 3 ML PEN SC SCH ×4 (08:44→21:04)
[2018-11-10] MEDS: ENOXAPARIN 30 MG/0.3 ML SYG SC SCH (08:45)
[2018-11-10] MEDS: MUPIROCIN 2% 22 GM OINT TOP SCH ×2 (08:51→21:05)
[2018-11-10] MEDS ORDERED: CASPOFUNGIN 70 MG in SOD CHLORIDE 0.9% 250 ML IVPB ONE (13:00)
[2018-11-10] MEDS: HYDROCODONE/APAP (5/325) TAB PO PRN (14:50)
[2018-11-10] MEDS: ATORVASTATIN 40 MG TAB PO SCH (21:01)
[2018-11-10] MEDS: DOXYCYCLINE 100 MG TAB PO SCH (21:02)
[2018-11-11] MEDS: ACCU-CHEK XX SCH (02:00)
[2018-11-11 03:42] VITALS: BP 92/52; PULSE 107; RESP 19
[2018-11-11] MEDS: metroNIDAZOLE 500 MG TAB PO SCH ×3 (05:21→20:19)
[2018-11-11] MEDS: PANTOPRAZOLE (EC) 40 MG TAB PO SCH (05:22)
[2018-11-11 07:43] VITALS: BP 106/55; PULSE 104; RESP 20
[2018-11-11] MEDS: INSULIN GLARGINE [LANTus] (100 UNITS/ML) SYG SC SCH (08:00)
[2018-11-11] MEDS: MEMANTINE 10 MG TAB PO SCH ×2 (08:38→20:19)
[2018-11-11] MEDS: LEVETIRACETAM 500 MG TAB PO SCH ×2 (08:39→20:19)
[2018-11-11] MEDS: glipiZIDE 10 MG TAB PO SCH (08:39)
[2018-11-11] MEDS: FOLIC ACID 1 MG TAB PO SCH (08:39)
[2018-11-11] MEDS: DONEPEZIL 10 MG TAB PO SCH (08:39)
[2018-11-11] MEDS: ASPIRIN (EC) 81 MG TAB PO SCH (08:39)
[2018-11-11] MEDS: DOXYCYCLINE 100 MG TAB PO SCH ×2 (08:39→20:19)
[2018-11-11] MEDS: ZINC SULFATE 220 MG CAP PO SCH (08:39)
[2018-11-11] MEDS: ASCORBIC ACID 500 MG TAB PO SCH ×2 (08:39→20:19)
[2018-11-11] MEDS: NEOMYC/POLYMYX/BACIT 30 GM OINT TOP SCH ×2 (08:40→20:20)
[2018-11-11] MEDS: BALSAM PERU/CASTOR OIL 60 GM TUBE TOP SCH (08:40)
[2018-11-11] MEDS: COLLAGENASE 5 GM (UD JAR) TOP SCH ×2 (08:40→20:19)
[2018-11-11] MEDS: ENOXAPARIN 30 MG/0.3 ML SYG SC SCH (08:42)
[2018-11-11] MEDS: INSULIN ASPART [NOVOLOG] 3 ML PEN SC SCH ×4 (08:42→20:33)
[2018-11-11] MEDS: MUPIROCIN 2% 22 GM OINT TOP SCH ×2 (08:48→20:20)
[2018-11-11] MEDS: MULTIVITAMINS THERAPEUTIC TAB PO SCH (08:49)
[2018-11-11 11:20] VITALS: BP 100/50; PULSE 95; RESP 20
[2018-11-11] MEDS: CASPOFUNGIN 50 MG in SOD CHLORIDE 0.9% 250 ML IVPB SCH (13:39)
[2018-11-11 15:23] VITALS: BP 96/50; PULSE 88; RESP 20
[2018-11-11 20:10] VITALS: BP 129/58; PULSE 98; RESP 19
[2018-11-11] MEDS: ATORVASTATIN 40 MG TAB PO SCH (20:19)
[2018-11-12] VITALS (7 sets, daily range): BP systolic 97–121; BP diastolic 52–62; PULSE 80–108; RESP 19–22
[2018-11-12] MEDS: ACCU-CHEK XX SCH (02:00)
[2018-11-12] MEDS: HYDROCODONE/APAP (5/325) TAB PO PRN ×2 (02:19→20:22)
[2018-11-12] MEDS: GUAIFENESIN/DM 5ML CUP PO PRN ×2 (02:43→20:29)
[2018-11-12] MEDS: PANTOPRAZOLE (EC) 40 MG TAB PO SCH (04:25)
[2018-11-12] MEDS: metroNIDAZOLE 500 MG TAB PO SCH ×3 (05:13→20:29)
[2018-11-12] MEDS: glipiZIDE 10 MG TAB PO SCH (07:46)
[2018-11-12] MEDS: INSULIN ASPART [NOVOLOG] 3 ML PEN SC SCH ×4 (08:09→20:21)
[2018-11-12] MEDS: INSULIN GLARGINE [LANTus] (100 UNITS/ML) SYG SC SCH (08:10)
[2018-11-12] MEDS: SOD CHLORIDE 0.9% 1,000 ML IV SCH (08:36)
[2018-11-12] MEDS: ASPIRIN (EC) 81 MG TAB PO SCH (08:38)
[2018-11-12] MEDS: DOXYCYCLINE 100 MG TAB PO SCH ×2 (08:38→20:22)
[2018-11-12] MEDS: FOLIC ACID 1 MG TAB PO SCH (08:39)
[2018-11-12] MEDS: MEMANTINE 10 MG TAB PO SCH ×2 (08:39→20:22)
[2018-11-12] MEDS: DONEPEZIL 10 MG TAB PO SCH (08:39)
[2018-11-12] MEDS: MULTIVITAMINS THERAPEUTIC TAB PO SCH (08:39)
[2018-11-12] MEDS: LEVETIRACETAM 500 MG TAB PO SCH ×2 (08:39→20:22)
[2018-11-12] MEDS: ASCORBIC ACID 500 MG TAB PO SCH ×2 (08:39→20:22)
[2018-11-12] MEDS: ZINC SULFATE 220 MG CAP PO SCH (08:39)
[2018-11-12] MEDS: MUPIROCIN 2% 22 GM OINT TOP SCH ×2 (08:41→20:21)
[2018-11-12] MEDS: BALSAM PERU/CASTOR OIL 60 GM TUBE TOP SCH (08:41)
[2018-11-12] MEDS: COLLAGENASE 5 GM (UD JAR) TOP SCH ×2 (08:41→20:21)
[2018-11-12] MEDS: NEOMYC/POLYMYX/BACIT 30 GM OINT TOP SCH ×2 (08:41→20:21)
[2018-11-12] MEDS: ENOXAPARIN 30 MG/0.3 ML SYG SC SCH (08:52)
[2018-11-12] MEDS: CASPOFUNGIN 50 MG in SOD CHLORIDE 0.9% 250 ML IVPB SCH (13:27)
[2018-11-12] MEDS: ATORVASTATIN 40 MG TAB PO SCH (20:22)
[2018-11-13] MEDS: ACCU-CHEK XX SCH (01:49)
[2018-11-13] MEDS: SOD CHLORIDE 0.9% 1,000 ML IV SCH (04:00)
[2018-11-13] MEDS: PANTOPRAZOLE (EC) 40 MG TAB PO SCH (04:54)
[2018-11-13] MEDS: metroNIDAZOLE 500 MG TAB PO SCH ×3 (04:54→22:24)
[2018-11-13] MEDS: GUAIFENESIN/DM 5ML CUP PO PRN ×2 (04:54→20:52)
[2018-11-13 05:44] VITALS: BP 101/57; PULSE 99; RESP 19
[2018-11-13 07:28] VITALS: BP 104/53; PULSE 100; RESP 18
[2018-11-13] MEDS: INSULIN ASPART [NOVOLOG] 3 ML PEN SC SCH ×4 (08:00→21:10)
[2018-11-13] MEDS ORDERED: POTASSIUM CHLORIDE (SR) 20 MEQ TAB PO STA (08:53)
[2018-11-13] MEDS: DONEPEZIL 10 MG TAB PO SCH (09:00)
[2018-11-13] MEDS: MEMANTINE 10 MG TAB PO SCH ×2 (09:22→20:52)
[2018-11-13] MEDS: LEVETIRACETAM 500 MG TAB PO SCH ×2 (09:22→20:52)
[2018-11-13] MEDS: ASCORBIC ACID 500 MG TAB PO SCH ×2 (09:22→20:52)
[2018-11-13] MEDS: ASPIRIN (EC) 81 MG TAB PO SCH (09:22)
[2018-11-13] MEDS: MULTIVITAMINS THERAPEUTIC TAB PO SCH (09:22)
[2018-11-13] MEDS: FOLIC ACID 1 MG TAB PO SCH (09:22)
[2018-11-13] MEDS: ZINC SULFATE 220 MG CAP PO SCH (09:22)
[2018-11-13] MEDS: DOXYCYCLINE 100 MG TAB PO SCH ×2 (09:23→20:51)
[2018-11-13] MEDS: glipiZIDE 10 MG TAB PO SCH (09:32)
[2018-11-13] MEDS: ENOXAPARIN 30 MG/0.3 ML SYG SC SCH (10:20)
[2018-11-13] MEDS: INSULIN GLARGINE [LANTus] (100 UNITS/ML) SYG SC SCH (10:20)
[2018-11-13 11:27] VITALS: BP 112/57; PULSE 100; RESP 18
[2018-11-13] MEDS: COLLAGENASE 5 GM (UD JAR) TOP SCH ×2 (12:00→20:54)
[2018-11-13] MEDS: BALSAM PERU/CASTOR OIL 60 GM TUBE TOP SCH (12:00)
[2018-11-13] MEDS: NEOMYC/POLYMYX/BACIT 30 GM OINT TOP SCH ×2 (12:01→20:54)
[2018-11-13] MEDS: MUPIROCIN 2% 22 GM OINT TOP SCH ×2 (12:01→20:54)
[2018-11-13] MEDS: CASPOFUNGIN 50 MG in SOD CHLORIDE 0.9% 250 ML IVPB SCH (14:33)
[2018-11-13 15:20] VITALS: BP 127/58; PULSE 58; RESP 20
[2018-11-13] MEDS: morphine 2 MG INJ IV PRN (17:30)
[2018-11-13 20:00] VITALS: BP 112/55; PULSE 100; RESP 19
[2018-11-13] MEDS: HYDROCODONE/APAP (5/325) TAB PO PRN (20:52)
[2018-11-13] MEDS: ATORVASTATIN 40 MG TAB PO SCH (20:52)
[2018-11-14] VITALS (7 sets, daily range): BP systolic 100–135; BP diastolic 52–67; PULSE 76–94; RESP 18–20
[2018-11-14] MEDS: ACCU-CHEK XX SCH (02:27)
[2018-11-14] MEDS: GUAIFENESIN/DM 5ML CUP PO PRN ×3 (04:28→20:44)
[2018-11-14] MEDS: HYDROCODONE/APAP (5/325) TAB PO PRN ×2 (04:28→20:44)
[2018-11-14] MEDS: PANTOPRAZOLE (EC) 40 MG TAB PO SCH (04:28)
[2018-11-14] MEDS: metroNIDAZOLE 500 MG TAB PO SCH ×3 (04:28→20:44)
[2018-11-14] MEDS: SOD CHLORIDE 0.9% 1,000 ML IV SCH ×2 (04:34)
[2018-11-14] MEDS: DOXYCYCLINE 100 MG TAB PO SCH ×2 (07:44→20:46)
[2018-11-14] MEDS: MULTIVITAMINS THERAPEUTIC TAB PO SCH (07:45)
[2018-11-14] MEDS: ZINC SULFATE 220 MG CAP PO SCH (07:45)
[2018-11-14] MEDS: MEMANTINE 10 MG TAB PO SCH ×2 (07:46→20:43)
[2018-11-14] MEDS: ASPIRIN (EC) 81 MG TAB PO SCH (07:46)
[2018-11-14] MEDS: LEVETIRACETAM 500 MG TAB PO SCH ×2 (07:46→20:44)
[2018-11-14] MEDS: FOLIC ACID 1 MG TAB PO SCH (07:46)
[2018-11-14] MEDS: glipiZIDE 10 MG TAB PO SCH (07:46)
[2018-11-14] MEDS: ASCORBIC ACID 500 MG TAB PO SCH ×2 (07:46→20:44)
[2018-11-14] MEDS: DONEPEZIL 10 MG TAB PO SCH (07:47)
[2018-11-14] MEDS: INSULIN GLARGINE [LANTus] (100 UNITS/ML) SYG SC SCH (08:45)
[2018-11-14] MEDS: ENOXAPARIN 30 MG/0.3 ML SYG SC SCH (08:48)
[2018-11-14] MEDS: INSULIN ASPART [NOVOLOG] 3 ML PEN SC SCH ×4 (08:48→21:30)
[2018-11-14] MEDS: POTASSIUM CHLORIDE 100 ML IVPB SCH ×2 (09:42→16:49)
[2018-11-14] MEDS: DEXTROSE 5% 1,000 ML IV SCH (09:50)
[2018-11-14] MEDS: CASPOFUNGIN 50 MG in SOD CHLORIDE 0.9% 250 ML IVPB SCH (16:46)
[2018-11-14] MEDS: MUPIROCIN 2% 22 GM OINT TOP SCH ×2 (17:48→20:44)
[2018-11-14] MEDS: COLLAGENASE 5 GM (UD JAR) TOP SCH ×2 (17:48→20:44)
[2018-11-14] MEDS: NEOMYC/POLYMYX/BACIT 30 GM OINT TOP SCH ×2 (17:48→20:44)
[2018-11-14] MEDS: BALSAM PERU/CASTOR OIL 60 GM TUBE TOP SCH (17:48)
[2018-11-14] MEDS: ATORVASTATIN 40 MG TAB PO SCH (20:44)
[2018-11-15] MEDS: ACCU-CHEK XX SCH (02:21)
[2018-11-15 03:59] VITALS: BP 105/53; PULSE 89; RESP 20
[2018-11-15] MEDS: DEXTROSE 5% 1,000 ML IV SCH (04:00)
[2018-11-15] MEDS: metroNIDAZOLE 500 MG TAB PO SCH ×3 (04:45→22:13)
[2018-11-15] MEDS: GUAIFENESIN/DM 5ML CUP PO PRN (04:45)
[2018-11-15] MEDS: PANTOPRAZOLE (EC) 40 MG TAB PO SCH (04:45)
[2018-11-15 07:35] VITALS: BP 116/57; PULSE 84; RESP 18
[2018-11-15] MEDS: glipiZIDE 10 MG TAB PO SCH (07:54)
[2018-11-15] MEDS: INSULIN ASPART [NOVOLOG] 3 ML PEN SC SCH ×4 (08:06→21:13)
[2018-11-15] MEDS: INSULIN GLARGINE [LANTus] (100 UNITS/ML) SYG SC SCH (08:06)
[2018-11-15] MEDS: COLLAGENASE 5 GM (UD JAR) TOP SCH ×2 (08:35→21:16)
[2018-11-15] MEDS: MEMANTINE 10 MG TAB PO SCH ×2 (08:35→21:15)
[2018-11-15] MEDS: BALSAM PERU/CASTOR OIL 60 GM TUBE TOP SCH (08:36)
[2018-11-15] MEDS: NEOMYC/POLYMYX/BACIT 30 GM OINT TOP SCH ×2 (08:36→21:15)
[2018-11-15] MEDS: MUPIROCIN 2% 22 GM OINT TOP SCH ×2 (08:36→21:15)
[2018-11-15] MEDS: DONEPEZIL 10 MG TAB PO SCH (08:37)
[2018-11-15] MEDS: ZINC SULFATE 220 MG CAP PO SCH (08:37)
[2018-11-15] MEDS: MULTIVITAMINS THERAPEUTIC TAB PO SCH (08:37)
[2018-11-15] MEDS: FOLIC ACID 1 MG TAB PO SCH (08:37)
[2018-11-15] MEDS: ASCORBIC ACID 500 MG TAB PO SCH ×2 (08:38→21:07)
[2018-11-15] MEDS: ASPIRIN (EC) 81 MG TAB PO SCH (08:38)
[2018-11-15] MEDS: DOXYCYCLINE 100 MG TAB PO SCH ×2 (08:38→21:07)
[2018-11-15] MEDS: LEVETIRACETAM 500 MG TAB PO SCH ×2 (08:38→21:15)
[2018-11-15] MEDS: ENOXAPARIN 30 MG/0.3 ML SYG SC SCH (08:51)
[2018-11-15 11:36] VITALS: BP 113/58; PULSE 80; RESP 18
[2018-11-15] MEDS: CASPOFUNGIN 50 MG in SOD CHLORIDE 0.9% 250 ML IVPB SCH (12:57)
[2018-11-15 15:50] VITALS: BP 129/65; PULSE 84; RESP 20
[2018-11-15 19:43] VITALS: BP 141/61; PULSE 86; RESP 18
[2018-11-15] MEDS: APIXABAN 5 MG TABLET PO SCH (21:08)
[2018-11-15] MEDS: ATORVASTATIN 40 MG TAB PO SCH (21:08)
[2018-11-16] VITALS: BP 113/55; PULSE 80; RESP 17
[2018-11-16] MEDS: ACCU-CHEK XX SCH (02:55)
[2018-11-16 04:00] VITALS: BP 102/58; PULSE 89; RESP 18
[2018-11-16] MEDS: PANTOPRAZOLE (EC) 40 MG TAB PO SCH (06:18)
[2018-11-16] MEDS: metroNIDAZOLE 500 MG TAB PO SCH ×2 (06:18→14:00)
[2018-11-16] MEDS: HYDROCODONE/APAP (5/325) TAB PO PRN (06:41)
[2018-11-16] MEDS ORDERED: MAGNESIUM SULFATE 3 GM in DEXTROSE 5% 100 ML IVPB ONE (07:00)
[2018-11-16 07:34] VITALS: BP 107/49; PULSE 85; RESP 15
[2018-11-16] MEDS: INSULIN ASPART [NOVOLOG] 3 ML PEN SC SCH ×5 (08:00→18:50)
[2018-11-16] MEDS: MEMANTINE 10 MG TAB PO SCH (08:56)
[2018-11-16] MEDS: DONEPEZIL 10 MG TAB PO SCH (08:56)
[2018-11-16] MEDS: APIXABAN 5 MG TABLET PO SCH (08:57)
[2018-11-16] MEDS: ASPIRIN (EC) 81 MG TAB PO SCH (08:57)
[2018-11-16] MEDS: LEVETIRACETAM 500 MG TAB PO SCH (08:57)
[2018-11-16] MEDS: FOLIC ACID 1 MG TAB PO SCH (08:57)
[2018-11-16] MEDS: DOXYCYCLINE 100 MG TAB PO SCH (08:58)
[2018-11-16] MEDS: MULTIVITAMINS THERAPEUTIC TAB PO SCH (08:58)
[2018-11-16] MEDS: ZINC SULFATE 220 MG CAP PO SCH (08:58)
[2018-11-16] MEDS: ASCORBIC ACID 500 MG TAB PO SCH (08:58)
[2018-11-16] MEDS: BALSAM PERU/CASTOR OIL 60 GM TUBE TOP SCH (08:59)
[2018-11-16] MEDS: MUPIROCIN 2% 22 GM OINT TOP SCH (08:59)
[2018-11-16] MEDS: COLLAGENASE 5 GM (UD JAR) TOP SCH (08:59)
[2018-11-16] MEDS: NEOMYC/POLYMYX/BACIT 30 GM OINT TOP SCH (08:59)
[2018-11-16] MEDS ORDERED: LINAGLIPTIN 5 MG TABLET PO SCH (09:00)
[2018-11-16] MEDS: INSULIN GLARGINE [LANTus] (100 UNITS/ML) SYG SC SCH (09:11)
[2018-11-16 11:28] VITALS: BP 113/57; PULSE 85; RESP 17
[2018-11-16] MEDS: CASPOFUNGIN 50 MG in SOD CHLORIDE 0.9% 250 ML IVPB SCH (13:00)
[2018-11-16 15:28] VITALS: BP 92/53; PULSE 87; RESP 18
[2018-11-16 19:48] VITALS: BP 134/62; PULSE 87; RESP 21
== END 2018-11-16 21:20 | DRG 562 ==
LOC: E/R 13:32 → 6WM 19:21
PROVIDERS: ADMIT Internal Medicine; ATTEND Internal Medicine
PROC: 0QSHXZZ Reposition Left Tibia, External Approach (ICD-10-PCS; principal; 2018-10-31 18:30)
DX: S82.142A Displaced bicondylar fracture of left tibia, initial encounter for closed fracture (principal); A41.9 Sepsis, unspecified organism; J69.0 Pneumonitis due to inhalation of food and vomit; N39.0 Urinary tract infection, site not specified; I69.354 Hemiplegia and hemiparesis following cerebral infarction affecting left non-dominant side; R47.01 Aphasia; I82.4Z2 Acute embolism and thrombosis of unspecified deep veins of left distal lower extremity; N17.9 Acute kidney failure, unspecified; S00.83XA Contusion of other part of head, initial encounter; S82.832A Other fracture of upper and lower end of left fibula, initial encounter for closed fracture; E78.5 Hyperlipidemia, unspecified; E11.9 Type 2 diabetes mellitus without complications; I25.10 Atherosclerotic heart disease of native coronary artery without angina pectoris; J44.9 Chronic obstructive pulmonary disease, unspecified; R36.9 Urethral discharge, unspecified; D50.9 Iron deficiency anemia, unspecified; W05.0XXA Fall from non-moving wheelchair, initial encounter; I12.9 Hypertensive chronic kidney disease with stage 1 through stage 4 chronic kidney disease, or unspecified chronic kidney disease; E11.22 Type 2 diabetes mellitus with diabetic chronic kidney disease; N18.9 Chronic kidney disease, unspecified; L89.159 Pressure ulcer of sacral region, unspecified stage; E83.9 Disorder of mineral metabolism, unspecified; E87.6 Hypokalemia; Y92.9 Unspecified place or not applicable; Z95.5 Presence of coronary angioplasty implant and graft; Z85.51 Personal history of malignant neoplasm of bladder; Z79.4 Long term (current) use of insulin; I25.2 Old myocardial infarction
CPT/HCPCS: 36430; 70450; 71045; 73550; 73560; 73590; 73700; 74230; 76775; 80048; 80053; 80061; 80069; 80202; 81001; 81003; 82043; 82565; 82962; 83036; 83540; 83690; 83735; 84100; 84155; 84300; 84484; 84520; 85014; 85018; 85025; 85610; 85730; 86850; 86900; 86901; 86920; 87075; 87081; 87086; 92526; 92610; 92611; 93005; 93306; 93970; 96374; 96375; 97110; 97162; 97530; J0690; J0692; J1100; J1450; J1650; J1815; J2250; J2270; J2310; J2370; J2405; J2543; J2795; J2916; J3010; J3370; J3475; J3480; J7030; J7040; J7050; J7070; L1832; P9016